=== PATIENT | male | born 1940 | race Caucasian/White ===

== ENCOUNTER 2016-04-20 19:17 | Inpatient (IN) | payer MEDICARE, OTHER ==
[~2016-04-20 19:17] MED LIST: ACTIGALL300 MG PO; ADULT LOW DOSE81 MG; ALLOPURINOL300 MG PO; AMLODIPINE BESY10 M1 PO; ASPIR-LOW81 MG PO; ASPIRIN325 MG; BABY ASPIRIN81 MG PO; BACTRIM DS1 TA1 PO; BYSTOLIC20 MG PO; CARVEDILOL12.5 M1 PO; CELEXA20 MG PO; CELEXA40 MG PO; CLONIDINE HCL0.1 M2 PO; CORGARD40 MG; CORGARD40 MG PO; COUMADIN5 M1 PO; COUMADIN5 M2 PO; COUMADIN5 MG PO; COZAAR100 MG PO; CRANBERRY; CRANBERRY PO; DARVOCET-N 1001 TAB PO; DULCOLAX10 MG/SUPP RC; DYAZIDE 37.5/251 CAP; EQL FISH OIL 1,1 CA1 PO; FLAX SEED OIL1000 M1 PO; FLAXSEED OIL1000 MG PO; FLEXERIL10 MG PO; FLOMAX0.4 MG PO; FLOVENT RO50 MCG/DIS IH; GLIPIZIDE5 MG PO; GLUCOPHAGE500 MG PO; HUMALOG100 U/ML SQ; HYDROCODONE; K CL PO; K-DUR20 MEQ; KEFLEX500 M1 PO; KLOR-CON M2020 MEQ; KLOR-CON M2020 MEQ PO; LASIX20 MG PO; LIDODERM30 EA; LORTAB 5/500 TA1 TAB; LOVENOX; LOVENOX100 MG/ML SQ; LOVENOX40 MG/0.4 SQ; MIRALAX17 G2 PO; MIRALAX255 GM PO; MOBIC15 MG; MOBIC7.5 MG; MULTIVITAMIN1 TAB; NORCO 5/325 TAB1 TAB PO; NORVASC5 MG PO; POTASSIUM CHLO10 ME2 PO; PREDNISONE20 MG PO; PREDNISONE5 M1 PO; PREDNISONE5 MG PO; SELENIUM200 MC1 PO; SELENIUM200 MC2 PO; SENNA PLUS TAB1 EACH PO; SENNA S TABLET1 TAB; SENOKOT-S TABLE1 TAB PO; SIMVASTATIN10 MG PO; THERA M1 TAB PO; TRIAMTERENE-HCT1 T PO; TYLENOL ARTHRI650 MG; TYLENOL W/CODEI1 TAB; VITAMIN B12500 MCG PO; VITAMIN C PO; VITAMIN D1000 UNI1 PO; WARFARIN SODIU7.5 MG PO; [UNRECOGNIZED DRUG - OTHER] PO
[2016-04-20] MEDS ORDERED: MIRALAX17 G2 PO (19:43)
[2016-04-20] MEDS ORDERED: PREDNISONE5 M1 PO (19:44)
[2016-04-20] MEDS ORDERED: LASIX40 M1 PO (19:44)
[2016-04-20] MEDS ORDERED: ZYLOPRIM100 M1 PO (19:45)
[2016-04-20] MEDS ORDERED: ZEBETA5 M2 PO (19:45)
[2016-04-20] MEDS ORDERED: CLONIDINE HCL0.1 M2 PO (19:45)
[2016-04-20] MEDS ORDERED: KLOR-CON M2020 ME1 PO ×2 (19:46→19:53)
[2016-04-20] MEDS ORDERED: COZAAR100 M1 PO (19:46)
[2016-04-20] MEDS ORDERED: ZOCOR10 M1 PO (19:46)
[2016-04-20] MEDS ORDERED: COUMADIN7.5 M1 PO (19:46)
[2016-04-20] MEDS ORDERED: GLUCOTROL5 M1 PO (19:46)
[2016-04-20] MEDS ORDERED: ASPIRIN EC81 MG PO (19:47)
[2016-04-20] MEDS ORDERED: FLOMAX0.4 M1 PO (19:47)
[2016-04-20] MEDS ORDERED: CRANBERRY500 M5 PO (19:48)
[2016-04-20] MEDS ORDERED: ALDACTONE25 M1 PO (19:54)
[2016-04-20 20:11] LABS: BASO % 0.2 % (0-2); EOSINOPHIL ABSOLUTE COUNT 0.2 tho/cmm (0.0-0.7); HCT-HEMATOCRIT 39.6 % (36.0-53.5); HGB-HEMOGLOBIN 13.1 gm/dl (13.5-17.0); IMMATURE GRANULOCYTES ABSOLUTE 0.02 tho/cmm (0-0.03); IMMATURE GRANULOCYTES PERCENT 0.2 % (0-0.3); LYMPH % 12.5 % (20-45); MCH (MEAN CORPUSCULAR HGB) 29.3 pg (28.0-32.0); MCHC MEAN CORPUSCULAR HGB CONC 33.1 % (32.0-36.0); MCV (MEAN CELL VOLUME) 88.6 fl (82.0-96.0); MEAN PLATELET VOLUME 9.9 cmc (9.4-12.4); MONO % 8.8 % (0-12); MONOCYTE ABSOLUTE COUNT 0.7 tho/cmm (0.0-1.2); NEUTROPHIL ABSOLUTE COUNT 6.2 tho/cmm (1.6-8.0); NEUTROPHIL-AUTOMATED 6.2 tho/cmm (1.6-8.0); NEUTROPHILS % 76.3 % (40-80); PLATELET COUNT 175 tho/cmm (150-450); RED BLOOD COUNT 4.47 mil/cmm (4.40-5.70); RED CELL DISTRIBUTION WIDTH 14.7 % (12.4-16.4); WHITE BLOOD COUNT 8.1 tho/cmm (4.0-10.0)
[2016-04-20 20:18] LABS: INR 2.1 INR (0.9-1.1); PROTHROMBIN TIME 24.5 SECONDS (9.0-13.6)
[2016-04-20 20:30] LABS: ALB/GLOB RATIO 0.8 (0.8-2.0); ALBUMIN 3.3 g/dl (3.5-5.0); ALKALINE PHOSPHATASE 68 U/L (33-138); BILIRUBIN,TOTAL 0.8 mg/dl (0.0-1.5); BLOOD UREA NITROGEN 28 mg/dl (6-24); C-REACTIVE PROTEIN 5.8 mg/dl (0-0.9); CALCIUM 8.3 mg/dl (8.5-10.5); CARBON DIOXIDE-VENOUS 30 mmol/L (22-32); CHLORIDE 104 mmol/l (96-110); CREATININE 1.35 mg/dl (0.60-1.30); GLUCOSE 114 mg/dL (70-110); SODIUM 138 mmol/L (135-145); eGFR VALUE FOR BLACK 59 mL/Min
[2016-04-20 20:43] LABS: PROCALCITONIN 0.05 ng/ml (0.05-0.09)
[2016-04-20 20:47] LABS: ESR-ERYTHROCYTE SED RATE 43 mm/hr (0-20)
[2016-04-20 20:48] LABS: ANION GAP 8 mmol/L (0-20)
[2016-04-20 20:49] LABS: ALT/SGPT 17 U/L (12-78); AST/SGOT 30 U/L (10-40); POTASSIUM 4.3 mmol/L (3.7-5.1)
[2016-04-21 05:37] LABS: BASO % 0.3 % (0-2); EOS % 3.2 % (0-7); EOSINOPHIL ABSOLUTE COUNT 0.3 tho/cmm (0.0-0.7); HCT-HEMATOCRIT 37.1 % (36.0-53.5); IMMATURE GRANULOCYTES ABSOLUTE 0.02 tho/cmm (0-0.03); IMMATURE GRANULOCYTES PERCENT 0.3 % (0-0.3); LYMPH % 14.8 % (20-45); LYMPH ABSOLUTE COUNT 1.2 tho/cmm (0.8-4.5); MCH (MEAN CORPUSCULAR HGB) 28.8 pg (28.0-32.0); MCHC MEAN CORPUSCULAR HGB CONC 32.3 % (32.0-36.0); MEAN PLATELET VOLUME 10.2 cmc (9.4-12.4); MONO % 11.7 % (0-12); MONOCYTE ABSOLUTE COUNT 0.9 tho/cmm (0.0-1.2); NEUTROPHIL ABSOLUTE COUNT 5.4 tho/cmm (1.6-8.0); NEUTROPHIL-AUTOMATED 5.4 tho/cmm (1.6-8.0); NEUTROPHILS % 69.7 % (40-80); PLATELET COUNT 173 tho/cmm (150-450); RED BLOOD COUNT 4.17 mil/cmm (4.40-5.70); RED CELL DISTRIBUTION WIDTH 14.7 % (12.4-16.4); WHITE BLOOD COUNT 7.8 tho/cmm (4.0-10.0)
[2016-04-21 05:42] LABS: INR 2.3 INR (0.9-1.1); PROTHROMBIN TIME 26.8 SECONDS (9.0-13.6)
[2016-04-21 06:02] LABS: ANION GAP 12 mmol/L (0-20); BLOOD UREA NITROGEN 24 mg/dl (6-24); CALCIUM 7.9 mg/dl (8.5-10.5); CARBON DIOXIDE-VENOUS 27 mmol/L (22-32); CHLORIDE 105 mmol/l (96-110); GLUCOSE 139 mg/dL (70-110); POTASSIUM 3.6 mmol/L (3.7-5.1); SODIUM 140 mmol/L (135-145); eGFR VALUE FOR BLACK 62 mL/Min
--- NOTE | 2016-04-21 15:53 | NUR ---
virtual care note: pt resting in bed. alert/oriented. states he has hip pain but denies need for intervention at this time. encouraged him to call his nurse if he does need something. discussed plan for I&D surgery tomorrow per orthopedic surgeon. he is in agreement with this. will continue to monitor. electronic chart reviewed.
--- NOTE | 2016-04-21 21:53 | NUR ---
VN ROUNDING-TRIED ROUNDING ON PATIENT BUT HE IS SLEEPING. THE IV PUMP WAS BEEPING SO I PAGED THE BEDSIDE NURSE AGUSTIN.
[2016-04-22 06:12] LABS: INR 2.2 INR (0.9-1.1); PROTHROMBIN TIME 26.6 SECONDS (9.0-13.6)
[2016-04-22 06:17] LABS: ANION GAP 11 mmol/L (0-20); BLOOD UREA NITROGEN 18 mg/dl (6-24); CALCIUM 7.8 mg/dl (8.5-10.5); CARBON DIOXIDE-VENOUS 28 mmol/L (22-32); CHLORIDE 108 mmol/l (96-110); CREATININE 1.39 mg/dl (0.60-1.30); GLUCOSE 113 mg/dL (70-110); POTASSIUM 3.9 mmol/L (3.7-5.1); SODIUM 143 mmol/L (135-145); eGFR VALUE FOR BLACK 57 mL/Min
[2016-04-22 06:20] LABS: BASO % 0.3 % (0-2); EOS % 4.1 % (0-7); EOSINOPHIL ABSOLUTE COUNT 0.3 tho/cmm (0.0-0.7); HCT-HEMATOCRIT 36.5 % (36.0-53.5); HGB-HEMOGLOBIN 11.7 gm/dl (13.5-17.0); IMMATURE GRANULOCYTES ABSOLUTE 0.02 tho/cmm (0-0.03); IMMATURE GRANULOCYTES PERCENT 0.3 % (0-0.3); LYMPH % 20.6 % (20-45); LYMPH ABSOLUTE COUNT 1.6 tho/cmm (0.8-4.5); MCHC MEAN CORPUSCULAR HGB CONC 32.1 % (32.0-36.0); MCV (MEAN CELL VOLUME) 90.6 fl (82.0-96.0); MEAN PLATELET VOLUME 9.8 cmc (9.4-12.4); MONO % 7.8 % (0-12); MONOCYTE ABSOLUTE COUNT 0.6 tho/cmm (0.0-1.2); NEUTROPHIL ABSOLUTE COUNT 5.1 tho/cmm (1.6-8.0); NEUTROPHIL-AUTOMATED 5.1 tho/cmm (1.6-8.0); NEUTROPHILS % 66.9 % (40-80); PLATELET COUNT 155 tho/cmm (150-450); RED BLOOD COUNT 4.03 mil/cmm (4.40-5.70); RED CELL DISTRIBUTION WIDTH 14.5 % (12.4-16.4); WHITE BLOOD COUNT 7.6 tho/cmm (4.0-10.0)
[2016-04-23 05:31] LABS: BASO % 0.3 % (0-2); EOS % 3.8 % (0-7); EOSINOPHIL ABSOLUTE COUNT 0.3 tho/cmm (0.0-0.7); HCT-HEMATOCRIT 36.5 % (36.0-53.5); HGB-HEMOGLOBIN 11.5 gm/dl (13.5-17.0); IMMATURE GRANULOCYTES ABSOLUTE 0.02 tho/cmm (0-0.03); IMMATURE GRANULOCYTES PERCENT 0.3 % (0-0.3); LYMPH % 13.8 % (20-45); LYMPH ABSOLUTE COUNT 1.1 tho/cmm (0.8-4.5); MCH (MEAN CORPUSCULAR HGB) 28.5 pg (28.0-32.0); MCHC MEAN CORPUSCULAR HGB CONC 31.5 % (32.0-36.0); MCV (MEAN CELL VOLUME) 90.6 fl (82.0-96.0); MEAN PLATELET VOLUME 9.9 cmc (9.4-12.4); MONOCYTE ABSOLUTE COUNT 0.7 tho/cmm (0.0-1.2); NEUTROPHIL ABSOLUTE COUNT 5.6 tho/cmm (1.6-8.0); NEUTROPHIL-AUTOMATED 5.6 tho/cmm (1.6-8.0); NEUTROPHILS % 72.8 % (40-80); PLATELET COUNT 150 tho/cmm (150-450); RED BLOOD COUNT 4.03 mil/cmm (4.40-5.70); RED CELL DISTRIBUTION WIDTH 14.5 % (12.4-16.4); WHITE BLOOD COUNT 7.7 tho/cmm (4.0-10.0)
[2016-04-23 05:45] LABS: INR 2.2 INR (0.9-1.1); PROTHROMBIN TIME 26.4 SECONDS (9.0-13.6)
[2016-04-23 05:59] LABS: ANION GAP 11 mmol/L (0-20); BLOOD UREA NITROGEN 15 mg/dl (6-24); C-REACTIVE PROTEIN 4.9 mg/dl (0-0.9); CALCIUM 7.8 mg/dl (8.5-10.5); CARBON DIOXIDE-VENOUS 28 mmol/L (22-32); CHLORIDE 105 mmol/l (96-110); CREATININE 1.32 mg/dl (0.60-1.30); GLUCOSE 104 mg/dL (70-110); POTASSIUM 3.6 mmol/L (3.7-5.1); SODIUM 140 mmol/L (135-145); eGFR VALUE FOR BLACK 61 mL/Min
[2016-04-24 05:31] LABS: INR 1.8 INR (0.9-1.1); PROTHROMBIN TIME 21.3 SECONDS (9.0-13.6)
[2016-04-24 14:46] LABS: CKMB 1.8 ng/ml (<3.6); CREATINE PHOSPHOKINASE (CPK) 94 U/L (35-232)
[2016-04-25 06:09] LABS: BASO % 0.4 % (0-2); EOS % 4.8 % (0-7); EOSINOPHIL ABSOLUTE COUNT 0.4 tho/cmm (0.0-0.7); HCT-HEMATOCRIT 36.1 % (36.0-53.5); HGB-HEMOGLOBIN 11.8 gm/dl (13.5-17.0); IMMATURE GRANULOCYTES ABSOLUTE 0.02 tho/cmm (0-0.03); IMMATURE GRANULOCYTES PERCENT 0.3 % (0-0.3); LYMPH % 13.4 % (20-45); MCH (MEAN CORPUSCULAR HGB) 29.1 pg (28.0-32.0); MCHC MEAN CORPUSCULAR HGB CONC 32.7 % (32.0-36.0); MCV (MEAN CELL VOLUME) 89.1 fl (82.0-96.0); MONO % 9.1 % (0-12); MONOCYTE ABSOLUTE COUNT 0.7 tho/cmm (0.0-1.2); NEUTROPHIL ABSOLUTE COUNT 5.4 tho/cmm (1.6-8.0); NEUTROPHIL-AUTOMATED 5.4 tho/cmm (1.6-8.0); PLATELET COUNT 159 tho/cmm (150-450); RED BLOOD COUNT 4.05 mil/cmm (4.40-5.70); RED CELL DISTRIBUTION WIDTH 14.3 % (12.4-16.4); WHITE BLOOD COUNT 7.6 tho/cmm (4.0-10.0)
[2016-04-25 06:13] LABS: PROTHROMBIN TIME 23.3 SECONDS (9.0-13.6)
[2016-04-25 06:42] LABS: ANION GAP 11 mmol/L (0-20); BLOOD UREA NITROGEN 12 mg/dl (6-24); CALCIUM 8.4 mg/dl (8.5-10.5); CARBON DIOXIDE-VENOUS 31 mmol/L (22-32); CHLORIDE 102 mmol/l (96-110); CREATININE 1.22 mg/dl (0.60-1.30); GLUCOSE 101 mg/dL (70-110); POTASSIUM 3.4 mmol/L (3.7-5.1); SODIUM 141 mmol/L (135-145); eGFR VALUE FOR BLACK 67 mL/Min
[2016-05-12] MEDS ORDERED: COUMADIN6 M1 PO (13:45)
[2016-05-12] MEDS ORDERED: NEURONTIN300 M1 PO (13:45)
[2016-05-12] MEDS ORDERED: NYSTATIN100000 UNI SSW (13:46)
[2016-05-12] MEDS ORDERED: NORCO 5-325 TA1 EACH PO (13:46)
[2016-05-12] MEDS ORDERED: ULTRAM50 M1 PO (13:46)
[2016-05-12] MEDS ORDERED: POTASSIUM CHLO20 ME3 PO (13:47)
[2016-05-12] MEDS ORDERED: ARGINAID EXTRA PO (13:48)
[2016-05-12] MEDS ORDERED: NYSTOP60 GM EXT (13:48)
[2016-05-12] MEDS ORDERED: COMPETE1 EACH PO (13:49)
[2016-05-12] MEDS ORDERED: MILK OF MAGNESIA PO (13:50)
[2016-06-23] MEDS ORDERED: ARGINAID POWDE1 EACH PO (14:07)
[2016-06-23] MEDS ORDERED: ALDACTONE25 M1 PO (14:08)
[2016-06-23] MEDS ORDERED: CATAPRES0.1 M1 PO (14:09)
[2016-06-23] MEDS ORDERED: COLACE100 M1 PO (14:10)
[2016-06-23] MEDS ORDERED: METOLAZONE5 M1 PO (14:37)
[2016-06-23] MEDS ORDERED: ACETAMINOPHEN500 M4 PO (14:39)
[2016-06-23] MEDS ORDERED: BIOTENE PBF473 ML (14:40)
[2016-06-23] MEDS ORDERED: FLOMAX0.4 M1 PO (14:42)
[2016-06-23] MEDS ORDERED: KLOR-CON20 MEQ PO (14:42)
[2016-06-23] MEDS ORDERED: NUCYNTA50 M1 PO (14:43)
[2016-07-06] MEDS ORDERED: ARGINAID POWDE1 EACH PO (14:49)
[2016-07-06] MEDS ORDERED: COZAAR100 M1 PO (14:50)
[2016-07-06] MEDS ORDERED: GLIPIZIDE5 M2 PO (14:50)
[2016-07-06] MEDS ORDERED: CATAPRES0.1 M1 PO (14:50)
[2016-07-06] MEDS ORDERED: ALDACTONE25 M1 PO (14:50)
[2016-07-06] MEDS ORDERED: COLACE100 M1 PO (14:50)
[2016-07-06] MEDS ORDERED: METOLAZONE5 M1 PO (14:51)
[2016-07-06] MEDS ORDERED: MIRALAX17 G2 PO (14:51)
[2016-07-06] MEDS ORDERED: COMPLETE MULTI1 EAC1 PO (14:51)
[2016-07-06] MEDS ORDERED: LASIX20 M1 PO (14:51)
[2016-07-06] MEDS ORDERED: PREDNISONE5 M1 PO (14:52)
[2016-07-06] MEDS ORDERED: BISOPROLOL FUMA10 M1 PO (14:52)
[2016-07-06] MEDS ORDERED: ZOCOR10 M1 PO (14:52)
[2016-07-06] MEDS ORDERED: ZYLOPRIM300 M1 PO (14:52)
[2016-07-06] MEDS ORDERED: TYLENOL325 M2 PO (14:53)
[2016-07-06] MEDS ORDERED: POTASSIUM CHLO20 ME3 PO (14:53)
[2016-07-06] MEDS ORDERED: FLOMAX0.4 M1 PO (14:53)
[2016-07-06] MEDS ORDERED: ASPIRIN EC81 MG PO (14:53)
[2016-07-06] MEDS ORDERED: ULTRAM50 M1 PO (14:54)
[2016-07-06] MEDS ORDERED: KLOR-CON20 MEQ PO (14:54)
[2016-07-06] MEDS ORDERED: COUMADIN6 M1 PO (14:54)
[2016-07-06] MEDS ORDERED: NUCYNTA50 M1 PO (14:54)
[2016-08-14] MEDS ORDERED: BISAC-EVAC10 MG PR (12:26)
[2016-08-14] MEDS ORDERED: NYSTOP60 GM EXT (12:27)
[2016-08-19] MEDS ORDERED: AUGMENTIN 875-1 EAC2 PO (09:39)
[2016-08-19] MEDS ORDERED: DISCONTINUE: (09:40)
[2016-08-19] MEDS ORDERED: COUMADIN7.5 M1 PO (09:41)
[2016-09-03] MEDS ORDERED: KLOR-CON M2020 ME1 PO (15:51)
[2016-09-03] MEDS ORDERED: GLUCOTROL5 M1 PO (15:52)
[2016-09-03] MEDS ORDERED: BISAC-EVAC10 MG PR (15:57)
[2016-09-10] MEDS ORDERED: KEFLEX500 M4 PO (14:32)
== END 2016-04-25 15:15 | DRG 982 ==
LOC: EDMED 19:17 → EMR2 22:34 → 5WD 22:40 → ORE 04-22 08:43 → PACU 04-22 09:17 → 5WD 04-22 10:00
PROVIDERS: Emergency Medicine; Internal Medicine; ADMIT Hospitalist
PROC: 0KBV0ZZ Excision of Right Foot Muscle, Open Approach (ICD-10-PCS; principal; 2016-04-22)
DX: E11.621 Type 2 diabetes mellitus with foot ulcer (principal); L02.611 Cutaneous abscess of right foot; L97.419 Non-pressure chronic ulcer of right heel and midfoot with unspecified severity; E11.42 Type 2 diabetes mellitus with diabetic polyneuropathy; L03.115 Cellulitis of right lower limb; Z68.41 Body mass index [BMI] 40.0-44.9, adult; I10 Essential (primary) hypertension; E66.01 Morbid (severe) obesity due to excess calories; I89.0 Lymphedema, not elsewhere classified; I87.2 Venous insufficiency (chronic) (peripheral); M10.9 Gout, unspecified; M06.9 Rheumatoid arthritis, unspecified; I25.10 Atherosclerotic heart disease of native coronary artery without angina pectoris; Z95.1 Presence of aortocoronary bypass graft; E78.5 Hyperlipidemia, unspecified; N40.0 Benign prostatic hyperplasia without lower urinary tract symptoms; F32.9 Major depressive disorder, single episode, unspecified; I12.9 Hypertensive chronic kidney disease with stage 1 through stage 4 chronic kidney disease, or unspecified chronic kidney disease; N18.9 Chronic kidney disease, unspecified; Z66 Do not resuscitate; Z79.01 Long term (current) use of anticoagulants; Z86.711 Personal history of pulmonary embolism
CPT/HCPCS: C1751; J0690; J1815; J2405; J2543; J3370; J7030; J7050; J7512